=== PATIENT | female | born 1940 | race Caucasian/White ===

== ENCOUNTER 2017-08-11 11:26 | Observation (INO) | payer BC ==
[2017-08-11 12:27] LABS: ADD MAN DIFF? NO
[2017-08-11 12:30] LABS: BASO % 1 % (0-3); EOS # 0.1 x10^3/uL (0.0-0.7); EOS % 1 % (0-3); HEMATOCRIT 41.6 % (36.0-47.0); HEMOGLOBIN 14.1 g/dL (12.0-15.5); LYMPH # 1.3 x10^3/uL (1.0-4.8); LYMPH % 17 % (24-48); MEAN CORPUSCULAR HEMOGLOBIN 31 pg (25-35); MEAN CORPUSCULAR HGB CONC 34 g/dL (31-37); MEAN CORPUSCULAR VOLUME 92 fL (79-100); MONO # 0.4 x10^3/uL (0.0-1.1); MONO % 6 % (0-9); NEUT # 5.6 x10^3uL (1.8-7.7); NEUT % 76 % (31-73); PLATELET COUNT 196 x10^3/uL (140-400); RED BLOOD COUNT 4.54 x10^6/uL (3.50-5.40); RED CELL DISTRIBUTION WIDTH 13.7 % (11.5-14.5); WHITE BLOOD COUNT 7.4 x10^3/uL (4.0-11.0)
[2017-08-11 12:40] LABS: ANION GAP 9 (6-14); BLOOD UREA NITROGEN 16 mg/dL (7-20); BUN/CREATININE RATIO 20 (6-20); CALCIUM 9.5 mg/dL (8.5-10.1); CARBON DIOXIDE 27 mmol/L (21-32); CHLORIDE 105 mmol/L (98-107); CREATININE 0.8 mg/dL (0.6-1.0); GFR 69.2; GLUCOSE 95 mg/dL (70-99); POTASSIUM 4.5 mmol/L (3.5-5.1); SODIUM 141 mmol/L (136-145)
[2017-08-11 12:41] LABS: PARTIAL THROMBOPLASTIN TIME 22 SEC (24-38); PROTHROMBIN TIME PATIENT 12.6 SEC (11.7-14.0)
[2017-08-11 12:46] LABS: ALBUMIN 3.9 g/dL (3.4-5.0); ALBUMIN/GLOBULIN RATIO 1.2 (1.0-1.7); ALK PHOS 65 U/L (46-116); ALT (SGPT) 26 U/L (14-59); AST (SGOT) 22 U/L (15-37); TOTAL BILIRUBIN 0.4 mg/dL (0.2-1.0); TOTAL PROTEIN 7.1 g/dL (6.4-8.2)
[2017-08-11 12:51] LABS: TROPONINI < 0.017 ng/mL (0.000-0.055)
[2017-08-11 12:54] LABS: NT-PRO BNP 245 pg/mL (0-449)
[2017-08-11 12:54] LABS: CKMB MASS 0.6 ng/mL (0.0-3.6); CREATINE KINASE 54 U/L (26-192)
[2017-08-11 14:09] LABS: BILIRUBIN,URINE NEGATIVE (NEG); CLARITY,URINE CLEAR; COLOR,URINE YELLOW; GLUCOSE,URINE NEGATIVE (NEG); NITRITE,URINE NEGATIVE (NEG); PH,URINE 7.5; PROTEIN,URINE NEGATIVE (NEG-TRACE); UROBILINOGEN,URINE 0.2 mg/dL (0.2 mg/dL)
[2017-08-11 14:29] LABS: BACTERIA,URINE 0 /HPF (0-FEW); SQUAMOUS EPITHELIAL CELL,UR FEW /LPF
[2017-08-11] MEDS: MECLIZINE HCL 12.5 MG TABLET. PO ×2 (16:15→22:07)
[2017-08-11] MEDS ORDERED: MORPHINE SULFATE 4 MG/ML DISP.SYRIN. IV (16:30)
[2017-08-11] MEDS ORDERED: ACETAMINOPHEN 325 MG TABLET. PO (16:30)
[2017-08-11] MEDS ORDERED: traMADol 50 MG TABLET PO (16:30)
[2017-08-11] MEDS ORDERED: ONDANSETRON PF 4 MG/2 ML VIAL. IV (16:30)
[2017-08-11] MEDS ORDERED: hydrALAZINE 20 MG/ML VIAL. IVP (16:30)
[2017-08-11] MEDS ORDERED: DOCUSATE SODIUM 100 MG CAPSULE. PO (16:30)
[2017-08-11] MEDS: FUROSEMIDE 20 MG/2 ML VIAL. IVP (17:06)
[2017-08-11] MEDS: ALBUTEROL SULFATE 2.5 MG/3 ML NEBU. NEB (17:19)
[2017-08-11] MEDS: ENOXAPARIN 40 MG/0.4 ML SYRINGE. SQ (22:10)
[2017-08-12] MEDS: MECLIZINE HCL 12.5 MG TABLET. PO ×5 (05:09→23:52)
[2017-08-12 09:50] LABS: ADD MAN DIFF? NO
[2017-08-12 09:51] LABS: BASO % 0 % (0-3); EOS # 0.1 x10^3/uL (0.0-0.7); EOS % 2 % (0-3); HEMATOCRIT 44.3 % (36.0-47.0); HEMOGLOBIN 14.9 g/dL (12.0-15.5); LYMPH # 1.3 x10^3/uL (1.0-4.8); LYMPH % 24 % (24-48); MEAN CORPUSCULAR HEMOGLOBIN 31 pg (25-35); MEAN CORPUSCULAR HGB CONC 34 g/dL (31-37); MEAN CORPUSCULAR VOLUME 92 fL (79-100); MONO # 0.4 x10^3/uL (0.0-1.1); MONO % 8 % (0-9); NEUT # 3.8 x10^3uL (1.8-7.7); NEUT % 67 % (31-73); PLATELET COUNT 200 x10^3/uL (140-400); RED BLOOD COUNT 4.82 x10^6/uL (3.50-5.40); RED CELL DISTRIBUTION WIDTH 13.8 % (11.5-14.5); WHITE BLOOD COUNT 5.7 x10^3/uL (4.0-11.0)
[2017-08-12 10:05] LABS: ANION GAP 5 (6-14); BLOOD UREA NITROGEN 19 mg/dL (7-20); CALCIUM 9.5 mg/dL (8.5-10.1); CARBON DIOXIDE 32 mmol/L (21-32); CHLORIDE 105 mmol/L (98-107); CREATININE 1.1 mg/dL (0.6-1.0); GFR 47.9; GLUCOSE 134 mg/dL (70-99); POTASSIUM 4.8 mmol/L (3.5-5.1); SODIUM 142 mmol/L (136-145)
[2017-08-12] MEDS: predniSONE 20 MG TABLET PO (12:16)
[2017-08-12] MEDS: GADOBUTROL 7.5 MMOL/7.5 ML VIAL IV (13:59)
[2017-08-12] MEDS: ENOXAPARIN 40 MG/0.4 ML SYRINGE. SQ (20:29)
[2017-08-13] MEDS: MECLIZINE HCL 12.5 MG TABLET. PO ×2 (06:00→11:37)
[2017-08-13] MEDS: predniSONE 20 MG TABLET PO ×2 (08:47→11:37)
[2017-08-13 09:55] LABS: C-REACTIVE PROTEIN 1.3 mg/L (0-3.3)
[2017-08-13 10:00] LABS: SEDIMENTATION RATE 5 (0-25)
[2017-08-13 12:09] LABS: CHOLESTEROL 217 mg/dL (0-200); CHOLESTEROL/HDL RATIO 2.6; HDLC 82 mg/dL (40-60); LDLC 117 mg/dL (0-100); NON-HDL CHOLESTEROL 135 mg/dL (0-129); TRIGLYCERIDES 88 mg/dL (0-150); VLDLC 18 mg/dL (0-40)
[2017-08-14 02:19] LABS: LYME IGG/IGM AB <0.91 ISR (0.00-0.90)
[2017-08-14 06:22] LABS: RPR Non Reactive (Non Reactive)
[2017-08-14] MEDS ORDERED: predniSONE 20 MG TABLET PO (09:00)
[2017-08-17 19:15] LABS: ANA INTERP Negative (.)
== END 2017-08-13 13:00 | disposition still patient (30) ==
LOC: ER 11:26 → ED HOLD 15:00 → 5 SOUTH 20:26
DX: H90.41 Sensorineural hearing loss, unilateral, right ear, with unrestricted hearing on the contralateral side (principal); H91.21 Sudden idiopathic hearing loss, right ear; H91.92 Unspecified hearing loss, left ear; E03.9 Hypothyroidism, unspecified; M19.90 Unspecified osteoarthritis, unspecified site; I10 Essential (primary) hypertension; J44.9 Chronic obstructive pulmonary disease, unspecified; M35.00 Sjogren syndrome, unspecified; F32.9 Major depressive disorder, single episode, unspecified
CPT/HCPCS: 36415; 70450; 70553; 71046; 80048; 80053; 80061; 81001; 82553; 83880; 84443; 84484; 85025; 85610; 85651; 85730; 86038; 86140; 86593; 86617; 86618; 93005; 96372; 96374; 96375; 97161-GP; 97166-GO; 99285-25; A9585; G0378; G0379; J1650; J7512; J7613; J8597

== ENCOUNTER 2017-10-19 11:12 | Inpatient (IN) | payer BC ==
[2017-10-19] MEDS: HYDROcodone/APAP 5/325MG 1 TAB TABLET PO ×2 (12:14→20:10)
[2017-10-19 13:35] LABS: ADD MAN DIFF? NO
[2017-10-19 13:40] LABS: BASO % 0 % (0-3); EOS # 0.1 x10^3/uL (0.0-0.7); EOS % 1 % (0-3); HEMATOCRIT 39.8 % (36.0-47.0); HEMOGLOBIN 13.5 g/dL (12.0-15.5); LYMPH # 0.9 x10^3/uL (1.0-4.8); LYMPH % 10 % (24-48); MEAN CORPUSCULAR HEMOGLOBIN 31 pg (25-35); MEAN CORPUSCULAR HGB CONC 34 g/dL (31-37); MEAN CORPUSCULAR VOLUME 92 fL (79-100); MONO # 0.5 x10^3/uL (0.0-1.1); MONO % 6 % (0-9); NEUT # 7.3 x10^3uL (1.8-7.7); NEUT % 83 % (31-73); PLATELET COUNT 186 x10^3/uL (140-400); RED BLOOD COUNT 4.34 x10^6/uL (3.50-5.40); RED CELL DISTRIBUTION WIDTH 14.6 % (11.5-14.5); WHITE BLOOD COUNT 8.8 x10^3/uL (4.0-11.0)
[2017-10-19 13:48] LABS: ANION GAP 10 (6-14); BLOOD UREA NITROGEN 17 mg/dL (7-20); CALCIUM 8.8 mg/dL (8.5-10.1); CARBON DIOXIDE 25 mmol/L (21-32); CHLORIDE 103 mmol/L (98-107); CREATININE 1.1 mg/dL (0.6-1.0); GFR 47.9; GLUCOSE 95 mg/dL (70-99); POTASSIUM 4.1 mmol/L (3.5-5.1); SODIUM 138 mmol/L (136-145)
[2017-10-19] MEDS ORDERED: ONDANSETRON PF 4 MG/2 ML VIAL. IV ×2 (14:15→15:30)
[2017-10-19] MEDS ORDERED: ACETAMINOPHEN 325 MG TABLET. PO ×2 (14:15→15:30)
[2017-10-19] MEDS ORDERED: MORPHINE SULFATE 2 MG/ML DISP.SYRIN. IV (15:30)
[2017-10-19] MEDS ORDERED: traMADol 50 MG TABLET PO (15:30)
[2017-10-19] MEDS ORDERED: hydrALAZINE 20 MG/ML VIAL. IVP (15:30)
[2017-10-19] MEDS ORDERED: DOCUSATE SODIUM 100 MG CAPSULE. PO (15:30)
[2017-10-19] MEDS ORDERED: MAGNESIUM HYDROXIDE 2,400 MG/30 ML ORAL.SUSP. PO (18:00)
[2017-10-19] MEDS: LIDOCAINE (700MG/PATCH) PATCH. TD (19:24)
[2017-10-19] MEDS: BISACODYL 5 MG TABLET.DR. PO (20:10)
[2017-10-19] MEDS: ENOXAPARIN 40 MG/0.4 ML SYRINGE. SQ (20:11)
[2017-10-19] MEDS: PATCH REMOVAL. MC (20:11)
[2017-10-20] MEDS: BISACODYL 5 MG TABLET.DR. PO (08:24)
[2017-10-20] MEDS: ASPIRIN ENTERIC COATED 81 MG TABLET.DR. PO (08:25)
[2017-10-20] MEDS: LIDOCAINE (700MG/PATCH) PATCH. TD (08:30)
[2017-10-20 08:45] LABS: ADD MAN DIFF? NO
[2017-10-20 08:54] LABS: BASO % 0 % (0-3); EOS # 0.2 x10^3/uL (0.0-0.7); EOS % 3 % (0-3); HEMATOCRIT 41.6 % (36.0-47.0); HEMOGLOBIN 13.9 g/dL (12.0-15.5); LYMPH # 1.1 x10^3/uL (1.0-4.8); LYMPH % 14 % (24-48); MEAN CORPUSCULAR HEMOGLOBIN 31 pg (25-35); MEAN CORPUSCULAR HGB CONC 33 g/dL (31-37); MEAN CORPUSCULAR VOLUME 92 fL (79-100); MONO # 0.6 x10^3/uL (0.0-1.1); MONO % 7 % (0-9); NEUT # 6.1 x10^3uL (1.8-7.7); NEUT % 76 % (31-73); PLATELET COUNT 170 x10^3/uL (140-400); RED BLOOD COUNT 4.52 x10^6/uL (3.50-5.40); RED CELL DISTRIBUTION WIDTH 14.4 % (11.5-14.5)
[2017-10-20 09:05] LABS: ANION GAP 10 (6-14); BLOOD UREA NITROGEN 17 mg/dL (7-20); CALCIUM 9.2 mg/dL (8.5-10.1); CARBON DIOXIDE 26 mmol/L (21-32); CHLORIDE 106 mmol/L (98-107); GFR 53.5; GLUCOSE 94 mg/dL (70-99); POTASSIUM 3.3 mmol/L (3.5-5.1); SODIUM 142 mmol/L (136-145)
[2017-10-20 09:22] LABS: FREE T4 0.96 ng/dL (0.76-1.46)
[2017-10-20] MEDS: POTASSIUM CHLORIDE 20 MEQ/15 ML ORAL LIQUID. PO (14:12)
[2017-10-20] MEDS: PATCH REMOVAL. MC (20:16)
[2017-10-20] MEDS: ENOXAPARIN 40 MG/0.4 ML SYRINGE. SQ (20:16)
[2017-10-21 04:29] LABS: ADD MAN DIFF? NO
[2017-10-21 04:36] LABS: BASO % 1 % (0-3); EOS # 0.3 x10^3/uL (0.0-0.7); EOS % 4 % (0-3); HEMATOCRIT 39.2 % (36.0-47.0); HEMOGLOBIN 13.4 g/dL (12.0-15.5); LYMPH # 1.7 x10^3/uL (1.0-4.8); LYMPH % 23 % (24-48); MEAN CORPUSCULAR HEMOGLOBIN 31 pg (25-35); MEAN CORPUSCULAR HGB CONC 34 g/dL (31-37); MEAN CORPUSCULAR VOLUME 91 fL (79-100); MONO # 0.5 x10^3/uL (0.0-1.1); MONO % 8 % (0-9); NEUT # 4.7 x10^3uL (1.8-7.7); NEUT % 65 % (31-73); PLATELET COUNT 154 x10^3/uL (140-400); RED BLOOD COUNT 4.29 x10^6/uL (3.50-5.40); RED CELL DISTRIBUTION WIDTH 14.5 % (11.5-14.5); WHITE BLOOD COUNT 7.2 x10^3/uL (4.0-11.0)
[2017-10-21 04:52] LABS: ANION GAP 8 (6-14); BLOOD UREA NITROGEN 15 mg/dL (7-20); CALCIUM 8.9 mg/dL (8.5-10.1); CARBON DIOXIDE 26 mmol/L (21-32); CHLORIDE 104 mmol/L (98-107); GFR 53.5; GLUCOSE 97 mg/dL (70-99); POTASSIUM 3.6 mmol/L (3.5-5.1); SODIUM 138 mmol/L (136-145)
[2017-10-21] MEDS: ASPIRIN ENTERIC COATED 81 MG TABLET.DR. PO (08:38)
[2017-10-21] MEDS: BISACODYL 5 MG TABLET.DR. PO (08:39)
[2017-10-21] MEDS: LIDOCAINE (700MG/PATCH) PATCH. TD (08:42)
== END 2017-10-21 11:56 | disposition home health service (06) | DRG 552 ==
LOC: ER 11:12 → 5 SOUTH 13:45
DX: S32.018A Other fracture of first lumbar vertebra, initial encounter for closed fracture (principal); E87.6 Hypokalemia; W18.30XA Fall on same level, unspecified, initial encounter; E03.9 Hypothyroidism, unspecified; I10 Essential (primary) hypertension; J44.9 Chronic obstructive pulmonary disease, unspecified; F32.9 Major depressive disorder, single episode, unspecified; K57.90 Diverticulosis of intestine, part unspecified, without perforation or abscess without bleeding; M19.90 Unspecified osteoarthritis, unspecified site; M35.00 Sjogren syndrome, unspecified; M47.816 Spondylosis without myelopathy or radiculopathy, lumbar region; Y92.009 Unspecified place in unspecified non-institutional (private) residence as the place of occurrence of the external cause; Z82.49 Family history of ischemic heart disease and other diseases of the circulatory system; Z86.010 Personal history of colon polyps; Z87.01 Personal history of pneumonia (recurrent); Z88.8 Allergy status to other drugs, medicaments and biological substances; Y93.89 Activity, other specified; Y92.091 Bathroom in other non-institutional residence as the place of occurrence of the external cause; Y99.8 Other external cause status; Z98.49 Cataract extraction status, unspecified eye; M48.07 Spinal stenosis, lumbosacral region
CPT/HCPCS: 36415; 70450; 72128; 72131; 72141; 72148; 80048; 82306; 84439; 84481; 85025; 97110-GP; 97116-GP; 97162-GP; 97166-GO; 97530-GP; 99285; 99285-25; J1650

== ENCOUNTER 2019-02-17 18:26 | Emergency (ER) | payer BC ==
[~2019-02-17] VITALS: Ht 165.1 cm; Wt 52.2 kg
[~2019-02-17 18:26] MED LIST: ASPI-612 PO; HYDR-2761 PO; LIDO700A21 TD; MECL12.52 PO
[2019-02-17 18:42] VITALS: BP 189/76
--- NOTE | 2019-02-17 18:58 | PHYS DOC ---
Past Medical History Past Medical History: Arthritis, COPD, Depression, Diverticulosis, Hypertension, Hypothyroid, Pneumonia, Other Additional Past Medical Histor: insomnia, sjogrens syn, ra, osteoarthritis, hyperlip, colonic polyp, acromi Past Surgical History: Other Additional Past Surgical Histo: medistinal lymphadenopthy, sinusitis, ddd,Colostomy and reversal. Alcohol Use: None Drug Use: None Adult General Chief Complaint Chief Complaint: MECHANICAL FALL HPI HPI Patient is an 78-year-old female who presents from home with report of worsening weakness and confusion. Patient does have history of dementia but patient's son-in-law states that patient has had sharp decline in mental status over last few days. He states that she has had a lot of falls recently including a couple in the last week. He states that over the last week patient really has not been leaving her room, stating that she has been too weak to get up and walk. He does indicate the patient has walkers and canes but refuses to use them. When asked where patient is having pain, she does point to her left ribs.[] Review of Systems Review of Systems Constitutional: Denies fever or chills [] Respiratory: Denies cough or shortness of breath [] Cardiovascular: No additional information not addressed in HPI [] GI: No reported vomiting or diarrhea [] Musculoskeletal: Complains of bilateral rib, left greater than right pain [] Neurologic: Positive reported mental status changes/confusion [] All other systems were reviewed and found to be within normal limits, except as documented in this note. Current Medications Current Medications Current Medications Medications (Trade) Dose Ordered Sig/James Start Time Stop Time Status Last Admin Dose Admin Lorazepam (Ativan Inj) 1 mg 1X ONCE 02/17/19 22:00 02/17/19 22:01 UNV Allergies Allergies Allergies Coded Allergies Type Severity Reaction Last Updated Verified roflumilast Adverse Reaction Mild "did not work" 08/12/17 Yes Physical Exam Physical Exam Constitutional: Well developed, well nourished, no acute distress, non-toxic appearance. [] HENT: Normocephalic, with ecchymoses noted to the face and scalp, bilateral external ears normal, oropharynx moist, no oral exudates, nose normal. [] Eyes: PERRLA, EOMI, conjunctiva normal, no discharge. [] Neck: Normal range of motion, no tenderness, supple. [] Cardiovascular: Regular rate and rhythm[] Lungs & Thorax: Bilateral breath sounds clear to auscultation [] Abdomen: Bowel sounds normal, soft, no tenderness. [] Skin: Warm, dry, no erythema, no rash. [] Extremities: No cyanosis, no clubbing, ROM intact. [] Neurologic: Awake and alert, no focal deficits noted. [] Current Patient Data Vital Signs Vital Signs Date Time Temp Pulse Resp B/P (MAP) Pulse Ox O2 Delivery O2 Flow Rate FiO2 02/17/19 18:42 98.3 77 16 189/76 (113) 98 Room Air 98.3 Lab Values Laboratory Tests Test 02/17/19 20:09 02/17/19 20:55 White Blood Count 7.1 x10^3/uL (4.0-11.0) Red Blood Count 4.78 x10^6/uL (3.50-5.40) Hemoglobin 14.2 g/dL (12.0-15.5) Hematocrit 42.4 % (36.0-47.0) Mean Corpuscular Volume 89 fL (79-100) Mean Corpuscular Hemoglobin 30 pg (25-35) Mean Corpuscular Hemoglobin Concent 34 g/dL (31-37) Red Cell Distribution Width 14.5 % (11.5-14.5) Platelet Count 193 x10^3/uL (140-400) Neutrophils (%) (Auto) 75 % (31-73) H Lymphocytes (%) (Auto) 16 % (24-48) L Monocytes (%) (Auto) 8 % (0-9) Eosinophils (%) (Auto) 1 % (0-3) Basophils (%) (Auto) 0 % (0-3) Neutrophils # (Auto) 5.3 x10^3/uL (1.8-7.7) Lymphocytes # (Auto) 1.2 x10^3/uL (1.0-4.8) Monocytes # (Auto) 0.6 x10^3/uL (0.0-1.1) Eosinophils # (Auto) 0.1 x10^3/uL (0.0-0.7) Basophils # (Auto) 0.0 x10^3/uL (0.0-0.2) Prothrombin Time 12.7 SEC (11.7-14.0) Prothrombin Time INR 1.0 (0.8-1.1) Sodium Level 142 mmol/L (136-145) Potassium Level 3.7 mmol/L (3.5-5.1) Chloride Level 103 mmol/L (98-107) Carbon Dioxide Level 29 mmol/L (21-32) Anion Gap 10 (6-14) Blood Urea Nitrogen 15 mg/dL (7-20) Creatinine 0.9 mg/dL (0.6-1.0) Estimated GFR (Cockcroft-Gault) 60.2 BUN/Creatinine Ratio 17 (6-20) Glucose Level 96 mg/dL (70-99) Calcium Level 9.5 mg/dL (8.5-10.1) Magnesium Level 2.2 mg/dL (1.8-2.4) Total Bilirubin 0.7 mg/dL (0.2-1.0) Aspartate Amino Transferase (AST) 22 U/L (15-37) Alanine Aminotransferase (ALT) 21 U/L (14-59) Alkaline Phosphatase 90 U/L (46-116) Ammonia < 10 mcmol/L (11-34) L Troponin I Quantitative < 0.017 ng/mL (0.000-0.055) Total Protein 7.8 g/dL (6.4-8.2) Albumin 3.8 g/dL (3.4-5.0) Albumin/Globulin Ratio 1.0 (1.0-1.7) Urine Collection Type U cath Urine Color Yellow Urine Clarity Clear Urine pH 7.0 Urine Specific [place] 1.020 Urine Protein Negative mg/dL (NEG-TRACE) Urine Glucose (UA) Negative mg/dL (NEG) Urine Ketones (Stick) Trace mg/dL (NEG) Urine Blood Negative (NEG) Urine Nitrite Negative (NEG) Urine Bilirubin Negative (NEG) Urine Urobilinogen Dipstick 1.0 mg/dL (0.2 mg/dL) Urine Leukocyte Esterase Negative (NEG) Urine RBC Rare /HPF (0-2) Urine WBC 1-4 /HPF (0-4) Urine Squamous Epithelial Cells Few /LPF Urine Amorphous Sediment Present /HPF Urine Bacteria 0 /HPF (0-FEW) Urine Mucus Mod /LPF Laboratory Tests 02/17/19 20:09 Laboratory Tests 02/17/19 20:09 EKG EKG [] Radiology/Procedures Radiology/Procedures [] Impressions: X-ray imaging has returned unremarkable. Course & Med Decision Making Course & Med Decision Making Pertinent Labs and Imaging studies reviewed. (See chart for details) Patient's workup is returned unremarkable between blood work as well as imaging studies. I did discuss option of admitting patient for her weakness and patient's medical power of staff attorney indicates that he plans to bring her home and watch her in his home. Dragon Disclaimer Dragon Disclaimer This electronic medical record was generated, in whole or in part, using a voice recognition dictation system. Departure Departure Impression: Primary Impression: Multiple falls Disposition: HOME, SELF-CARE Condition: STABLE Referrals: ELEAZAR SIFUENTES (PCP) Patient Instructions: Fall Prevention and Home Safety DEIRDRE LUCAS Jr. DO Feb 17, 2019 18:58
--- NOTE | 2019-02-17 19:48 | RAD ---
Examination: Single frontal view the pelvis HISTORY: History of fall, pain Comparison none available Findings/ impression: The bilateral femoral heads within the acetabula. Moderate joint space loss identified in the bilateral hip joints likely degenerative changes. Mild expansile appearance of the left superior pubic ramus with hypodensity, age indeterminate fracture or old fracture. However there is focal tenderness recommend CT bony pelvis for further evaluation. Electronically signed by: Carl Florence MD (02/17/2019 7:45 PM) [facility]
--- NOTE | 2019-02-17 20:01 | RAD ---
Exam: Abdomen one view INDICATION: Trauma TECHNIQUE: Frontal view of the abdomen Comparisons: None FINDINGS: Air and stool are noted throughout the colon to level the rectum in a nonobstructive bowel gas pattern. No suspicious masses or calcifications. Diffuse osteopenia without displaced fracture identified. IMPRESSION: Nonobstructive bowel gas pattern. Electronically signed by: Remedios Adkins MD (02/17/2019 7:58 PM) [facility]
--- NOTE | 2019-02-17 20:02 | RAD ---
Exam: Left ribs 2 views INDICATION: Trauma TECHNIQUE: Frontal and oblique views of the left ribs Comparisons: None FINDINGS: No displaced rib fractures identified. Visualized soft tissues are unremarkable. IMPRESSION: No displaced rib fractures identified. Electronically signed by: Remedios Adkins MD (02/17/2019 7:59 PM) [facility]
--- NOTE | 2019-02-17 20:03 | RAD ---
Examination: CT head and cervical spine without contrast CT HEAD INDICATION: Fall COMPARISON: 08/11/2017 Exposure: One or more of the following individualized dose reduction techniques were utilized for this examination: 1. Automated exposure control 2. Adjustment of the mA and/or kV according to patient size 3. Use of iterative reconstruction technique TECHNIQUE: 5 mm contiguous axial images were obtained from the skull base to the vertex in both bone and soft tissue algorithm. FINDINGS: Moderate bilateral periventricular white matter hypodensities likely ischemic disease. Mild prominent bilateral lateral ventricles to prior exam. No evidence of acute intracranial hemorrhage. No extra-axial fluid collections. No mass effect or midline shift. Ventricular size is appropriate. Basal cisterns are patent. No fractures identified.Lopez-white differentiation is preserved.Globes and orbits are within normal limits. Paranasal sinuses and mastoid air cells are clear. Streak artifact from cochlear implant limits evaluation. IMPRESSION: 1. No acute intracranial findings. 2. Mild prominent lateral ventricles be age related or mild hydrocephalus, unchanged. CT CERVICAL SPINE History: fall COMPARISON: None Available. Technique: 2.5 mm contiguous axial images were obtained from the skull base through the cervicothoracic junction in both bone and soft tissue algorithm. Additional sagittal and coronal reconstructions were also performed. FINDINGS: Evaluation the axial images limited due to significant motion artifact. Grossly, Vertebral body height and alignment are maintained. Cervical lordosis is preserved. The lateral masses of C1 are aligned upon C2. No fractures identified. The bony canal is patent throughout. Moderate intervertebral disc height loss identified in the cervical spine likely degenerative changes. The paraspinous soft tissues are unremarkable. Visualized intracranial contents are unremarkable. Lung apices are clear. IMPRESSION: 1. Limited examination due to motion artifact. Grossly no acute fracture evident. Electronically signed by: Carl Florence MD (02/17/2019 8:00 PM) [facility]
--- NOTE | 2019-02-17 20:05 | RAD ---
Exam: Chest one view INDICATION: Trauma TECHNIQUE: Frontal view of the chest Comparisons: None FINDINGS: The cardiomediastinal silhouette and pulmonary vessels are within normal limits. The lung and pleural spaces are clear. IMPRESSION: No acute cardiopulmonary process. Electronically signed by: Remedios Adkins MD (02/17/2019 8:02 PM) [facility]
[2019-02-17 20:18] LABS: BASO % 0 % (0-3); EOS # 0.1 x10^3/uL (0.0-0.7); EOS % 1 % (0-3); HEMATOCRIT 42.4 % (36.0-47.0); HEMOGLOBIN 14.2 g/dL (12.0-15.5); LYMPH # 1.2 x10^3/uL (1.0-4.8); LYMPH % 16 % (24-48); MEAN CORPUSCULAR HEMOGLOBIN 30 pg (25-35); MEAN CORPUSCULAR HGB CONC 34 g/dL (31-37); MEAN CORPUSCULAR VOLUME 89 fL (79-100); MONO # 0.6 x10^3/uL (0.0-1.1); MONO % 8 % (0-9); NEUT # 5.3 x10^3/uL (1.8-7.7); NEUT % 75 % (31-73); PLATELET COUNT 193 x10^3/uL (140-400); RED BLOOD COUNT 4.78 x10^6/uL (3.50-5.40); RED CELL DISTRIBUTION WIDTH 14.5 % (11.5-14.5); WHITE BLOOD COUNT 7.1 x10^3/uL (4.0-11.0)
[2019-02-17 20:26] LABS: PROTHROMBIN TIME PATIENT 12.7 SEC (11.7-14.0)
[2019-02-17 20:33] LABS: CALCIUM 9.5 mg/dL (8.5-10.1); CREATININE 0.9 mg/dL (0.6-1.0); GFR 60.2; POTASSIUM 3.7 mmol/L (3.5-5.1)
[2019-02-17 20:38] LABS: ALBUMIN 3.8 g/dL (3.4-5.0); MAGNESIUM 2.2 mg/dL (1.8-2.4); TOTAL BILIRUBIN 0.7 mg/dL (0.2-1.0); TOTAL PROTEIN 7.8 g/dL (6.4-8.2)
[2019-02-17 21:04] LABS: BILIRUBIN,URINE NEGATIVE (NEG); CLARITY,URINE CLEAR; COLOR,URINE YELLOW; NITRITE,URINE NEGATIVE (NEG); PROTEIN,URINE NEGATIVE (NEG-TRACE)
[2019-02-17 21:12] LABS: SQUAMOUS EPITHELIAL CELL,UR FEW /LPF
[2019-02-17 21:14] LABS: AMORPHOUS SEDIMENT,UR PRESENT /HPF; BACTERIA,URINE 0 /HPF (0-FEW); RBC,URINE RARE /HPF (0-2)
--- NOTE | 2019-02-18 06:52 | EKG ---
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
== END 2019-02-17 22:17 | disposition home or self-care (01) ==
LOC: ER 18:26
DX: R53.1 Weakness (principal); R41.0 Disorientation, unspecified; F03.90 Unspecified dementia, unspecified severity, without behavioral disturbance, psychotic disturbance, mood disturbance, and anxiety; J44.9 Chronic obstructive pulmonary disease, unspecified; I10 Essential (primary) hypertension; E03.9 Hypothyroidism, unspecified; Z91.81 History of falling; Z88.8 Allergy status to other drugs, medicaments and biological substances
CPT/HCPCS: 36415; 70450; 71045; 71100; 72125; 72170; 74018; 80053; 81001; 82140; 83735; 84484; 85025; 85610; 93005; 96374; 99285; J2060

== ENCOUNTER → 2019-03-16 | Outpatient (CLI) | payer BC ==
[2019-02-17 18:42] VITALS: BP 189/76
--- NOTE | 2019-03-17 12:18 | KCIC ---
CT study of the cervical and thoracic spine without contrast Clinical indications: Frequent falls. Unsteady gait. Weakness. TECHNIQUE: Noncontrast helical CT scanning of the cervical spine and thoracic spine was performed. Multiplanar 2-D reconstructions were generated. PQRS compliance Statement One or more of the following individualized dose reduction techniques were utilized for this study: 1. Automated exposure control 2. Adjustment of the mA and/or kV according to patient size 3. Use of iterative reconstruction technique CERVICAL SPINE: No compression fracture or radiolucent fracture line is evident. No discitis or lytic process is evident. Grade 1 anterolisthesis of C3-4 is seen secondary to facet arthropathy. This results in a mild AP dimensional spinal canal stenosis measuring 9 mm in the midline. Degenerative disc space narrowing and endplate spurring is seen at C3-4 but more prominently at C4-5 and C5-6 and C6-7. No prominent focal disc protrusion is seen. There is degenerative osteoarthritis and subchondral cyst formation involving the joint space between the anterior arch of C1 and the odontoid process of C2. There is soft tissue pannus associated with this. No displacement of the cervical cord is evident here. No significant neural foraminal narrowing is seen. IMPRESSION: No acute fracture. Degenerative cervical spondylosis. Grade 1 anterolisthesis of C3-4 with a mild spinal canal stenosis at this level. This is unchanged from October 20, 2017 MRI study of the cervical spine. THORACIC SPINE: There is a moderate compression fracture of L1. This was seen on a previous MRI study lumbar spine dated October 20, 2017. Vertical dimension of the L1 vertebral body at that time was 21 mm. Now it is 16 mm. Therefore, the vertical compression has increased here. There is a mild compression fracture of the superior endplate of T9. This is new from prior CT study of the thoracic spine dated October 19, 2017. The vertical dimension of the T9 vertebral body on the previous study was 19 mm and now is 16 mm. There is mild compression fracture of the superior endplate of T4. This is new in comparison to the previous MRI study of the cervical spine dated October 20, 2017 and the previous thoracic spine CT study of October 19, 2017. The vertical dimension of T4 on the previous CT study was 14 mm and now it is 12 mm. No discitis or lytic process is evident. Mild degenerative endplate spurring and diffuse disc bulging is seen at T9-T10 and T12-L1. The AP dimension of the spinal canal at the midline at these 2 levels is 11 mm and 11 mm respectively. Therefore no significant spinal canal stenosis is evident. There are subacute incompletely healed fractures of the posterior aspect of the left 11th and 12th ribs. IMPRESSION: New mild compression fractures of T4 and T9. Old compression fracture of L1 but there has been an increase in the vertical compression from the prior study consistent with a new compression fracture here as well. Subacute fractures of the left 11th and 12th ribs. Electronically signed by: Gulshan Lal MD (03/17/2019 12:15 PM) [facility]
== END | disposition home or self-care (01) ==
LOC: KCIC CT 12:50
PROVIDERS: ATTEND Psychiatry & Neurology Neurology
DX: M43.12 Spondylolisthesis, cervical region (principal); M48.02 Spinal stenosis, cervical region; M47.812 Spondylosis without myelopathy or radiculopathy, cervical region; M12.88 Other specific arthropathies, not elsewhere classified, other specified site; M48.54XA Collapsed vertebra, not elsewhere classified, thoracic region, initial encounter for fracture
CPT/HCPCS: 72125; 72128